=== PATIENT | male | born 1990 | race African-American/Black ===

== ENCOUNTER 2019-03-06 15:01 | Emergency (ER) | payer SELFPAY ==
[~2019-03-06] VITALS: Ht 175.3 cm; Wt 84.8 kg
--- NOTE | 2019-03-06 15:16 | NUR ---
ED Nurse Note: Pt walked in ED c/o bilateral groin pain x 3 days; pain 5/10.
[2019-03-06 15:19] VITALS: BP 154/99
[2019-03-06] MEDS ORDERED: Lidocaine 1% MPF 10mg/ml 5ml INJ ONE (15:30)
--- NOTE | 2019-03-06 15:43 | Emergency Room Report ---
History of Present Illness General Chief Complaint: Pain Source: Patient Present Illness HPI 28-year-old male with no significant past medical history here complaining of dysuria and yellow penile discharge that started 2 days ago after being sexually active unprotected. Denies any testicular pain, nausea vomiting, suprapubic pain, hematuria, fever and chills. Patient does not know if his partner is positive for any sexually transmitted diseases and is willing to be treated for possibilities. Denies all other associated symptoms. ROS: denies: fatigue, low energy, confusion denies: nausea, vomiting, abdominal pain, urinary frequency, dysuria denies: sob, chest pain, dizziness, blurred vision, headache denies: muscle pain, tingling/numbness denies: sore throat, rhinorrea, fever, chills, ear pain denies: anxiety, depresion, SI, HI, drug use Allergies: Coded Allergies: No Known Allergies (Unverified , 03/06/19) Patient History Past Medical History: see triage record Past Surgical History: unable to obtain Pertinent Family History: none Immunizations: UTD Reviewed Nursing Documentation: PMH: Agreed; PSxH: Agreed Nursing Documentation-PMH Past Medical History: No Stated History Review of Systems All Other Systems: negative except mentioned in HPI Physical Exam Vital Signs Date Time Temp Pulse Resp B/P (MAP) Pulse Ox O2 Delivery O2 Flow Rate FiO2 03/06/19 15:12 98.2 79 21 154/99 (117) 99 Room Air Sp02 EP Interpretation: reviewed, normal General Appearance: normal inspection, well appearing, no apparent distress Head: normocephalic Eyes: bilateral eye normal inspection, bilateral eye PERRL ENT: normal ENT inspection, normal pharynx Neck: normal inspection, full range of motion Respiratory: normal inspection, chest non-tender, no wheezing Cardiovascular #1: normal inspection, normal peripheral pulses, no murmur Gastrointestinal: normal inspection, non tender, soft Rectal: deferred Genitourinary: no CVA tenderness Musculoskeletal: normal inspection, digits/nails normal Neurologic: normal inspection, alert, oriented x3 Psychiatric: normal inspection, judgement/insight normal, memory normal Skin: no rash Lymphatic: normal inspection, no adenopathy Medical Decision Making PA Attestation All diagnoses and treatment plans were reviewed and discussed with my supervising physician Dr. Mcneill Diagnostic Impression: Primary Impression: Penile discharge ER Course 28-year-old male with no significant past medical history here complaining of dysuria and yellow penile discharge that started 2 days ago after being sexually active unprotected. Denies any testicular pain, nausea vomiting, suprapubic pain, hematuria, fever and chills. Patient does not know if his partner is positive for any sexually transmitted diseases and is willing to be treated for possibilities. Denies all other associated symptoms. ROS: denies: fatigue, low energy, confusion denies: nausea, vomiting, abdominal pain, urinary frequency, dysuria denies: sob, chest pain, dizziness, blurred vision, headache denies: muscle pain, tingling/numbness denies: sore throat, rhinorrea, fever, chills, ear pain denies: anxiety, depresion, SI, HI, drug use Ddx considered but are not limited to: UTI, pylonephritis, urinary incontinence , prolapsed bladder Vital signs: are WNL, pt. is afebrile H&PE are most consistent with: Penile discharge ORDERS: UA, GC and chlamydia, patient agrees to be prophylactically treated for both, Rocephin, doxycycline ED INTERVENTIONS: Rocephin DISCHARGE: At this time pt. is stable for d/c to home. Will provide printed patient care instructions, and any necessary prescriptions. Care plan and follow up instructions have been discussed with the patient prior to discharge. Last Vital Signs Date Time Temp Pulse Resp B/P (MAP) Pulse Ox O2 Delivery O2 Flow Rate FiO2 03/06/19 15:19 98.2 79 21 154/99 99 Room Air Disposition: HOME, SELF-CARE Condition: Stable Scripts Doxycycline Hyclate (DOXYCYCLINE HYCLATE) 100 Mg Capsule 100 MG PO BID for 7 Days, #14 CAP Prov: Kallie Diggs 03/06/19 Patient Instructions: Chlamydia, Male, Gonorrhea Additional Instructions: Take medication as directed, use condoms, pending results for chlamydia and gonorrhea. Patient agreed to be treated for both. Kallie Diggs Mar 06, 2019 15:43
[2019-03-06] MEDS ORDERED: DOXYCYCLINE HY100 M2 PO (15:45)
[2019-03-06 15:51] LABS: APPEARANCE,URINE CLEAR; BILIRUBIN, URINE NEGATIVE (NEGATIVE); COLOR,URINE PALE YELLOW; GLUCOSE, URINE (UA) NEGATIVE (NEGATIVE); KETONES,URINE NEGATIVE (NEGATIVE); LEUKOCYTE ESTERASE ,URINE 3+ (NEGATIVE); NITRITE,URINE NEGATIVE (NEGATIVE); PH,URINE 7 (4.5-8.0); PROTEIN,URINE NEGATIVE (NEGATIVE); UROBILINOGEN,URINE NORMAL MG/DL (0.0-1.0)
--- NOTE | 2019-03-06 16:02 | NUR ---
ER DISCHARGE NOTE: Patient is cleared to be discharged per ERMD, pt is aox4, on room air, with stable vital signs. pt was given dc and prescription instructions, pt was able to verbalize understanding, pt id band removed . pt is able to ambulate with steady gait. pt took all belongings.
[2019-03-06 16:03] VITALS: BP 134/89
== END 2019-03-06 16:02 | disposition home or self-care (01) ==
LOC: EMR 15:40
DX: R36.9 Urethral discharge, unspecified (principal)
CPT/HCPCS: 81001; 87491; 87590; 96372; 96374; 99284; J0696

== ENCOUNTER 2019-03-09 10:41 | Emergency (ER) | payer SELFPAY ==
[~2019-03-09] VITALS: Ht 175.3 cm; Wt 83.9 kg
[~2019-03-09 10:41] MED LIST: DOXYCYCLINE HY100 M2 PO
[2019-03-09 10:45] VITALS: BP 151/91
[2019-03-09] MEDS ORDERED: Lidocaine 1% MPF 10mg/ml 5ml INJ ONE (11:00)
--- NOTE | 2019-03-09 11:01 | Emergency Room Report ---
History of Present Illness General Chief Complaint: Male Urogenital Problems Source: Patient Present Illness HPI Patient is a 28-year-old male brought in by self after continued penile discharge. Patient recently been treated for gonorrhea. He had finished approximately 2 days worth of antibiotics and had received an injection of Rocephin. Patient had previous laboratory testing which showed gonorrhea positive. Chlamydia was negative. Patient had previous been prescribed doxycycline and reportedly had been taking the medications. He denies any fever. He reports having decreased urethral discharge. Allergies: Coded Allergies: No Known Allergies (Unverified , 03/06/19) Patient History Past Medical History: see triage record Reviewed Nursing Documentation: PMH: Agreed; PSxH: Agreed Nursing Documentation-PMH Past Medical History: No Stated History Review of Systems All Other Systems: negative except mentioned in HPI Physical Exam Vital Signs Date Time Temp Pulse Resp B/P (MAP) Pulse Ox O2 Delivery O2 Flow Rate FiO2 03/09/19 10:45 98.4 85 20 151/91 98 Room Air General Appearance: well appearing, no apparent distress, alert, GCS 15, non- toxic Head: normocephalic, atraumatic ENT: hearing grossly normal, normal voice Neck: full range of motion, supple Respiratory: normal inspection, lungs clear, no respiratory distress, speaking full sentences Gastrointestinal: normal inspection Neurologic: normal inspection, alert, oriented x3, normal gait Psychiatric: normal inspection, mood/affect normal Skin: no rash Medical Decision Making Diagnostic Impression: Primary Impression: Urethritis ER Course Patient presented for urethral discharge. Differential diagnosis include was not limited to gonorrhea, urinary tract infection, resistant infection among others. Patient appears to have some improvement in his symptoms since initiating antibiotics. Patient will be given additional dose of Rocephin in the emergency department. Patient was advised to follow-up with his primary care physician for further STD testing. He is to return if worse. Last Vital Signs Date Time Temp Pulse Resp B/P (MAP) Pulse Ox O2 Delivery O2 Flow Rate FiO2 03/09/19 10:45 98.4 83 20 151/91 (111) 98 Room Air Status: improved Disposition: HOME, SELF-CARE Condition: Stable Patient Instructions: Urethritis, Adult Geronimo Bauer MD Mar 09, 2019 11:01
[2019-03-09 11:13] VITALS: BP 148/85
--- NOTE | 2019-03-09 11:13 | NUR ---
ER DISCHARGE NOTE: Pt was seen due to penile discharge. Patient is cleared to be discharged per ERMD, pt is aox4, on room air, with stable vital signs. pt was given dc instructions, pt was able to verbalize understanding, pt id band removed without complications. pt is able to ambulate with steady gait. pt took all belongings.
== END 2019-03-09 11:13 | disposition home or self-care (01) ==
LOC: EMR 11:05
DX: N34.2 Other urethritis (principal)
CPT/HCPCS: 96372; 99283; J0696